=== PATIENT | female | born 1990 | race Caucasian/White ===

== ENCOUNTER 2020-01-15 04:51 | Inpatient (IN) | payer BC ==
[2020-01-15] MEDS ORDERED: RINGERS SOLUTION,LACTATED 1,000 ML IV PRN (05:01)
[2020-01-15] MEDS ORDERED: CEFAZOLIN 2 GM/D5W RTU 2 GM/50 ML RTUPB IV PRN (05:04)
[2020-01-15] MEDS ORDERED: CEFAZOLIN 1 GM/D5W RTU 2 GM/100 ML RTUPB IV ONE (05:11)
[2020-01-15] MEDS ORDERED: RINGERS SOLUTION,LACTATED 1,000 ML IV ONE (05:15)
[2020-01-15 06:08] LABS: ABSOLUTE EOSINOPHILS # (AUTO) 0.1 10^3/uL (0.0-0.6); ABSOLUTE LYMPHOCYTES (AUTO) 2.2 10^3/uL (0.5-4.7); ABSOLUTE MONOCYTES (AUTO) 0.8 10^3/uL (0.1-1.4); ABSOLUTE NEUT (AUTO) 6.8 10^3/uL (1.7-8.2); BASOPHILS % (AUTO) 0.4 % (0-2); EOSINOPHILS % (AUTO) 1.2 % (0-6); HEMOGLOBIN 10.7 g/dL (12.0-15.5); LYMPHOCYTES % (AUTO) 21.9 % (13-45); MEAN CORPUSCULAR HEMOGLOBIN 28.5 pg (27.0-33.4); MEAN CORPUSCULAR HGB CONC 34.4 g/dL (32.0-36.0); MEAN CORPUSCULAR VOLUME 83 fl (80-97); MONOCYTES % (AUTO) 8.1 % (3-13); PLATELET COUNT 214 10^3/uL (150-450); RED BLOOD COUNT 3.75 10^6/uL (3.72-5.28); RED CELL DISTRIBUTION WIDTH 18.2 % (11.5-14.0); SEGMENTED NEUTROPHILS % (AUTO) 68.4 % (42-78); TOTAL CELLS COUNTED % (AUTO) 100 %; WHITE BLOOD COUNT 9.9 10^3/uL (4.0-10.5)
[2020-01-15 06:16] LABS: APPEARANCE,URINE CLEAR; BILIRUBIN,URINE NEGATIVE (NEGATIVE); COLOR,URINE YELLOW; GLUCOSE, URINE NEGATIVE (NEGATIVE); KETONES,URINE NEGATIVE (NEGATIVE); LEUKOCYTE ESTERASE,URINE SMALL (NEGATIVE); NITRITE,URINE NEGATIVE (NEGATIVE); PROTEIN,URINE NEGATIVE (NEGATIVE); URINE SPECIFIC GRAVITY 1.013; UROBILINOGEN,URINE NEGATIVE mg/dL (<2.0)
[2020-01-15 06:21] LABS: URINE AMPHETAMINES SCREEN NEGATIVE; URINE BARBITURATES SCREEN NEGATIVE; URINE BENZODIAZEPINES SCREEN NEGATIVE; URINE COCAINE SCREEN NEGATIVE; URINE MARIJUANA (THC) SCREEN NEGATIVE; URINE METHADONE SCREEN NEGATIVE; URINE PHENCYCLIDINE SCREEN NEGATIVE
[2020-01-15] MEDS ORDERED: KETOROLAC TROMETHAMINE INJ/PF 30 MG/1 ML SDV ONE (07:17)
[2020-01-15] MEDS ORDERED: GLYCOPYRROLATE INJ 0.4 MG/2 ML VIAL ONE (07:17)
[2020-01-15] MEDS ORDERED: OXYTOCIN 10 UNIT/ML VIAL ONE (07:17)
[2020-01-15] MEDS ORDERED: ACETAMINOPHEN 1,000 MG/100 ML RTUPB IV ONE (07:18)
[2020-01-15] MEDS ORDERED: FENTANYL CITRATE INJ/PF 100 MCG/2 ML AMPUL ONE (07:18)
[2020-01-15] MEDS ORDERED: DIPHENHYDRAMINE HCL 50 MG/ML VIAL ONE ×2 (07:18→13:36)
[2020-01-15] MEDS ORDERED: MIDAZOLAM 2 MG/2 ML INJ ONE (07:18)
[2020-01-15] MEDS ORDERED: ONDANSETRON HCL INJ/PF 4 MG/2 ML SDV ONE (07:18)
[2020-01-15] MEDS ORDERED: OXYTOCIN/NORMAL SALINE 20 UNIT/1,000 ML RTUINJ ONE (07:18)
[2020-01-15] MEDS ORDERED: EPHEDRINE SULFATE INJ 50 MG/1 ML AMPULE ONE (07:18)
[2020-01-15] MEDS ORDERED: PHENYLEPHRINE HCL INJ/PF 10 MG/1 ML SDV ONE (07:18)
[2020-01-15] MEDS ORDERED: MORPHINE SULFATE 10 MG/ML INJ IV PRN (08:30)
[2020-01-15] MEDS ORDERED: DIPHENHYDRAMINE HCL 50 MG/ML VIAL IV PRN (08:30)
[2020-01-15] MEDS ORDERED: FENTANYL CITRATE INJ/PF 100 MCG/2 ML AMPUL IV PRN ×3 (08:30)
[2020-01-15] MEDS ORDERED: PROMETHAZINE HCL INJ 25 MG/1 ML VIAL IV PRN ×3 (08:30→08:56)
[2020-01-15] MEDS ORDERED: OXYCODONE-ACETAMINOPHEN 5-325 MG TABLET PO PRN ×3 (08:30→08:56)
[2020-01-15] MEDS ORDERED: SIMETHICONE 80 MG TAB.CHEW PO PRN (08:56)
[2020-01-15] MEDS ORDERED: MEASLES,MUMPS&RUBELLA VACC/PF 0.5 ML VIAL SUBCUT PRN (08:56)
[2020-01-15] MEDS ORDERED: DIPH/PERTUSS(ACELL)/TETANUS VAC/PF 0.5 ML SYR (>=10YO) IM PRN (08:56)
[2020-01-15] MEDS ORDERED: OXYTOCIN/NORMAL SALINE 20 UNIT/1,000 ML RTUINJ IV PRN (08:56)
[2020-01-15] MEDS ORDERED: ACETAMINOPHEN 325 MG TABLET PO PRN (08:56)
[2020-01-15] MEDS: KETOROLAC TROMETHAMINE INJ/PF 30 MG/1 ML SDV IV SCH ×3 (09:29→21:30)
[2020-01-15] MEDS ORDERED: MISOPROSTOL 0.2 MG TABLET ONE (10:03)
[2020-01-15] MEDS ORDERED: METHYLERGONOVINE MALEATE INJ/PF 0.2 MG/1 ML AMPULE IM ONE (10:04)
[2020-01-15] MEDS ORDERED: MISOPROSTOL 0.1 MG TABLET PR ONE (10:05)
[2020-01-15] MEDS ORDERED: METHYLERGONOVINE MALEATE INJ/PF 0.2 MG/1 ML AMPULE ONE (10:11)
[2020-01-15] MEDS ORDERED: MEPERIDINE HCL/PF INJ 25 MG/1 ML DISP.SYRIN ONE (10:45)
[2020-01-15] MEDS: MEPERIDINE HCL/PF INJ 25 MG/1 ML DISP.SYRIN IV PRN ×2 (10:46→10:58)
--- NOTE | 2020-01-15 11:22 | PDOC DELIVERY SUMMARY ---
Delivery Summary - Maternal Hx : II Hx # Pregnancies: 1 DAHIANA: 01/09/20 Ruptured Membranes: AROM Time of Rupture: 08:10 Fluids: Clear - Delivery Presentation: Vertex Heart Rate Monitoring: Done Pre-Operatively Support Person Present: Yes Location: OR : Scheduled Placenta: Within Normal Limits Delivery of Placenta Date: 01/15/20 Delivery of Placenta Time: 08:11 - Medications Type of Anesthesia:: Spinal - Delivery Medications Delivery Meds: Cytotec 1000mcg Per Rectum/Vagina - Infant Assess and Care Baby 1 Male Delivery of Date: 01/15/20 Delivery of Time: 08:11 at 1 minute: 8 at 5 minutes: 9 Preprinted Number On Band: [id number] Skin to Skin: No To Nursery At: 08:24 Mode of Transport: Bassinet Infant Delivery Weight: 4,520 Delivery Length: 21.25 in - Delivery Personnel Nursery RN: ME RN: LOLY MAGUIRE MD: LOLY WOLFF
--- NOTE | 2020-01-15 11:27 | Operative Report ---
Operative Report DATE OF SURGERY: 01/15/20 PREOPERATIVE DIAGNOSIS: Term IUP. Macrosomia. History of prior difficult deli very at 35 wks with twins POSTOPERATIVE DIAGNOSIS: Same as above OPERATION: Primary section SURGEON: LOLY WOLFF ANESTHESIA: Spinal TISSUE REMOVED OR ALTERED: Placenta COMPLICATIONS: None ESTIMATED BLOOD LOSS: 650cc QUANTITATIVE BLOOD LOSS: 625 INTRAOPERATIVE FINDINGS: Normal appearing uterus, bilateral fallopian tubes and ovaries. Vertex presentaion with nuchal x1 noted. Fluid clear. Placenta posterior and normal appearing grossly. Viable male infant at 9 lb 5 oz or 4,508 grams with Apgars of 8/9 at one and 5 minutes respectfully. PROCEDURE: IV fluids: per anesthesia record Urinary output: 400 cc Findings: Normal-appearing uterus bilateral fallopian tubes and ovaries. Placenta normal grossly. Viable male with Apgars of 8 and 9, at 1 and 5 minutes respectively. Weight 9 lb 15 oz Position: To recovery room in stable condition Description of procedure: The patient was taken to the operating room and spinal anesthesia was administered and found to be adequate. She was then placed on the OR table in the supine position with a slight leftward tilt. Patient was prepped and draped in usual sterile fashion. Ancef 2 gms was given IV prior to the procedure for infection prophylaxis. Timeout was taken. A Pfannenstiel skin incision was then made approximately 3 cm above the pubic symphysis and carried down to level the rectus fascia. The rectus fascia was then nicked in the midline with a scalpel and the fascial incision was extended laterally with use of curved Mauricio scissors. The rectus fascia was then grasped with 2 Kocker clamps elevated and the underlying rectus muscle was dissected off both bluntly and sharply. Any bleeding controlled with cautery. The rectus muscles were then split in the midline and the peritoneum was entered. The peritoneal incision was then extended by manually stretching the peritoneum. The bladder blade was positioned. The bladder was noted to be out of harm's way. A scalpel was then used in the lower uterine for the hysterotomy, slowly until amniotomy was obtained a large amount of fluid was noted. The uterine incision was then manually stretched. The was noted to be in vertex postion. The head was elevated and brought to the hysterotomy incision. Nuchal cord x1 noted and reduced. The head then delivered with minmal difficulty. The shoulders and the rest of the body followed immediately. The cord was cut clamped and the was handed off to the nurse awaiting. Infant was crying prior to hand off. The placenta was manually delivered. Using a lap gauze the uterus was cleared of all clots and debris. The uterus was then exteriorized and a bladder blade was repositioned. The uterine incision was then closed with 0 Chromic suture in a running locked fashion. A second layer of the same suture was used in a running locked imbricated fashion. The uterine incision was inspected and one area was oozing but stopped after placing a box stitch. The posterior aspect of the uterus was then inspected and anatomy was seen as above. The uterus was returned to its normal anatomic position within the abdominal cavity. Warm saline irrigation was used to clear all clots and debris from the abdomen. The uterine incision was inspected once more and noted to remain hemostatic. The bladder blade was removed and the peritoneum was closed with 2-0 chromic in a running fashion. The rectus muscles were then reapproximated and the rectus fascia was closed with a #1 PDS in a running fashion. The subcutaneous tissue was then inspected and any bleeding was controlled with Bovie electrocautery. The skin was then closed with 4-0 Monocryl in a running subcuticular fashion. The skin incision was then clean dried and Dermabond was applied over the skin incision. All instrument sponge and needle counts were correct x3 for the procedure the patient tolerated the procedure well. She will proceed to recovery room in stable condition
[2020-01-15] MEDS ORDERED: METHYLERGONOVINE MALEATE 0.2 MG TABLET PO SCH (12:00)
[2020-01-15] MEDS: PRENATAL VITAMIN W DHA CAPSULE PO SCH (12:18)
[2020-01-15] MEDS: DOCUSATE SODIUM 100 MG CAPSULE PO SCH ×2 (12:18→18:05)
[2020-01-15] MEDS: HYDROMORPHONE HCL INJ/PF 2 MG/ML AMPULE IV PRN ×3 (12:20→19:49)
[2020-01-15] MEDS ORDERED: DIPHENHYDRAMINE HCL 50 MG/ML VIAL IV ONE ×2 (13:45→14:15)
[2020-01-15] MEDS: METHYLERGONOVINE MALEATE 0.2 MG TABLET PO SCH ×2 (14:34→21:29)
[2020-01-15] MEDS: DIPHENHYDRAMINE HCL 50 MG/ML VIAL IV PRN ×2 (18:05→22:10)
[2020-01-15] MEDS: OXYCODONE-ACETAMINOPHEN 5-325 MG TABLET PO PRN (18:05)
[2020-01-16] MEDS: OXYCODONE-ACETAMINOPHEN 5-325 MG TABLET PO PRN (00:04)
[2020-01-16] MEDS ORDERED: IBUPROFEN 800 MG TABLET PO SCH ×2 (02:00→14:00)
[2020-01-16] MEDS: METHYLERGONOVINE MALEATE 0.2 MG TABLET PO SCH ×3 (02:11→17:41)
[2020-01-16] MEDS: DIPHENHYDRAMINE HCL 50 MG/ML VIAL IV PRN (02:14)
[2020-01-16 07:11] LABS: HEMATOCRIT 33.6 % (36.0-47.0); HEMOGLOBIN 11.1 g/dL (12.0-15.5); MEAN CORPUSCULAR HEMOGLOBIN 27.5 pg (27.0-33.4); MEAN CORPUSCULAR HGB CONC 33.2 g/dL (32.0-36.0); MEAN CORPUSCULAR VOLUME 83 fl (80-97); PLATELET COUNT 214 10^3/uL (150-450); RED BLOOD COUNT 4.06 10^6/uL (3.72-5.28); RED CELL DISTRIBUTION WIDTH 18.9 % (11.5-14.0); WHITE BLOOD COUNT 15.9 10^3/uL (4.0-10.5)
[2020-01-16] MEDS: IBUPROFEN 800 MG TABLET PO SCH ×2 (08:28→15:38)
--- NOTE | 2020-01-16 10:11 | PDOC PROGRESS REPORT ---
Subjective-OB Progress Note for:: 01/16/20 Subjective: reports bleeding slowing, pain controlled with current meds, denies needs. want to go home today Physical Exam (OB) Vital Signs: Temp Pulse Resp BP Pulse Ox 98.1 F 70 16 124/57 L 96 01/16/20 07:13 01/16/20 07:13 01/16/20 07:13 01/16/20 07:13 01/16/20 07:13 Intake & Output 01/15/20 01/16/20 01/17/20 06:59 06:59 06:59 Intake Total 600 Output Total 3050 Balance -3050 600 - Incision: Well Approximated Closure Type: Surgical Glue - Abdomen Description: Soft, Round Hernia Present: No Fundal Description: Firm, Midline Fundal Height: u/u - u/2 - Abdominal Distension: No distension Tenderness: Nontender - Extremities Lower extremities: Ly's sign - neg Calf: Normal, Nontender Objective-Diagnostic Laboratory: 01/16/20 06:35 01/16/20 01/16/20 06:35 06:35 WBC 15.9 H RBC 4.06 Hgb 11.1 L Hct 33.6 L MCV 83 MCH 27.5 MCHC 33.2 RDW 18.9 H Plt Count 214 Blood Type O NEGATIVE Assessment and Plan(PN) - Assessment and Plan (1) Asthma Qualifiers: Asthma severity: mild Is this a current diagnosis for this admission?: No (2) Status post primary low transverse section Is this a current diagnosis for this admission?: Yes (3) Suspected macroscopic fetus Is this a current diagnosis for this admission?: Yes (4) Acute blood loss anemia Is this a current diagnosis for this admission?: No - Time Spent with Patient Time with patient: Less than 15 minutes Medications reviewed and adjusted accordingly: Yes - Disposition Anticipated Discharge: Home Within: within 24 hours
--- NOTE | 2020-01-16 10:16 | PDOC DISCHARGE SUMMARY ---
Impression - Admit/DC Date/PCP Admission Date/Primary Care Provider: 01/15/20 04:51 HOOD HOPKINS MD Discharge Date: 01/16/20 - Discharge Diagnosis (1) Asthma Is this a current diagnosis for this admission?: No (2) Status post primary low transverse section Is this a current diagnosis for this admission?: Yes (3) Suspected macroscopic fetus Is this a current diagnosis for this admission?: Yes (4) Acute blood loss anemia Is this a current diagnosis for this admission?: No - Additional Information Resuscitation Status: Full Code Discharge Diet: Regular Discharge Activity: Balance Activity w/Rest, No Lifting Over 10 Pounds, No Lifting/Push/Pulling, Pelvic Rest, No tub bath Referrals: HOOD HOPKINS MD [Primary Care Provider] - Prescriptions: Hydrocodone/Acetaminophen [Hydrocodone-Acetamin 7.5-300] 1 each PO Q4HP PRN #30 tablet PRN Reason: Ibuprofen [Motrin 800 mg Tablet] 800 mg PO Q8HP PRN #60 tablet PRN Reason: Home Medications: No.137/Iron/Folic Acd [ Vitamin Tablet] 1 tab PO DAILY 11/10/14 Hydrocodone/Acetaminophen [Hydrocodone-Acetamin 7.5-300] 1 each PO Q4HP PRN #30 tablet 01/16/20 Ibuprofen [Motrin 800 mg Tablet] 800 mg PO Q8HP PRN #60 tablet 01/16/20 Results Laboratory Results: WBC 15.9 10^3/uL (4.0-10.5) H 01/16/20 06:35 RBC 4.06 10^6/uL (3.72-5.28) 01/16/20 06:35 Hgb 11.1 g/dL (12.0-15.5) L 01/16/20 06:35 Hct 33.6 % (36.0-47.0) L 01/16/20 06:35 MCV 83 fl (80-97) 01/16/20 06:35 MCH 27.5 pg (27.0-33.4) 01/16/20 06:35 MCHC 33.2 g/dL (32.0-36.0) 01/16/20 06:35 RDW 18.9 % (11.5-14.0) H 01/16/20 06:35 Plt Count 214 10^3/uL (150-450) 01/16/20 06:35 Lymph % (Auto) 21.9 % (13-45) 01/15/20 05:33 [place] % (Auto) 8.1 % (3-13) 01/15/20 05:33 Eos % (Auto) 1.2 % (0-6) 01/15/20 05:33 Baso % (Auto) 0.4 % (0-2) 01/15/20 05:33 Absolute Neuts (auto) 6.8 10^3/uL (1.7-8.2) 01/15/20 05:33 Absolute Lymphs (auto) 2.2 10^3/uL (0.5-4.7) 01/15/20 05:33 Absolute Monos (auto) 0.8 10^3/uL (0.1-1.4) 01/15/20 05:33 Absolute Eos (auto) 0.1 10^3/uL (0.0-0.6) 01/15/20 05:33 Absolute Basos (auto) 0.0 10^3/uL (0.0-0.2) 01/15/20 05:33 Seg Neutrophils % 68.4 % (42-78) 01/15/20 05:33 Urine Color YELLOW 01/15/20 05:25 Urine Appearance CLEAR 01/15/20 05:25 Urine pH 6.0 (5.0-9.0) 01/15/20 05:25 Ur Specific [place] 1.013 01/15/20 05:25 Urine Protein NEGATIVE mg/dL (NEGATIVE) 01/15/20 05:25 Urine Glucose (UA) NEGATIVE mg/dL (NEGATIVE) 01/15/20 05:25 Urine Ketones NEGATIVE mg/dL (NEGATIVE) 01/15/20 05:25 Urine Blood NEGATIVE (NEGATIVE) 01/15/20 05:25 Urine Nitrite NEGATIVE (NEGATIVE) 01/15/20 05:25 Urine Bilirubin NEGATIVE (NEGATIVE) 01/15/20 05:25 Urine Urobilinogen NEGATIVE mg/dL (<2.0) 01/15/20 05:25 Ur Leukocyte Esterase SMALL (NEGATIVE) H 01/15/20 05:25 Urine WBC (Auto) 15 /HPF 01/15/20 05:25 Urine RBC (Auto) 1 /HPF 01/15/20 05:25 Urine Bacteria (Auto) TRACE /HPF 01/15/20 05:25 Squamous Epi Cells Auto 3 /HPF 01/15/20 05:25 Urine Mucus (Auto) RARE /LPF 01/15/20 05:25 Urine Ascorbic Acid NEGATIVE (NEGATIVE) 01/15/20 05:25 Urine Opiates Screen NEGATIVE 01/15/20 05:25 Urine Methadone Screen NEGATIVE 01/15/20 05:25 Ur Barbiturates Screen NEGATIVE 01/15/20 05:25 Ur Phencyclidine Scrn NEGATIVE 01/15/20 05:25 Ur Amphetamines Screen NEGATIVE 01/15/20 05:25 U Benzodiazepines Scrn NEGATIVE 01/15/20 05:25 Urine Cocaine Screen NEGATIVE 01/15/20 05:25 U Marijuana (THC) Screen NEGATIVE 01/15/20 05:25 Blood Type O NEGATIVE 01/16/20 06:35 Antibody Screen NEGATIVE 01/15/20 05:33 Plan Plan of Treatment: follow up in one week at [facility] for incision check
[2020-01-16] MEDS: PRENATAL VITAMIN W DHA CAPSULE PO SCH (10:47)
[2020-01-16] MEDS: DOCUSATE SODIUM 100 MG CAPSULE PO SCH ×2 (10:48→17:43)
[2020-01-16 17:32] VITALS: BP 131/82
== END 2020-01-16 18:20 | disposition home or self-care (01) | DRG 806 ==
LOC: 2S 04:51 → EDSTATUS 09:45
PROVIDERS: ADMIT Obstetrics & Gynecology Gynecology; ATTEND Obstetrics & Gynecology Gynecology
PROC: 10907ZC Drainage of Amniotic Fluid, Therapeutic from Products of Conception, Via Natural or Artificial Opening (ICD-10-PCS; 2020-01-15)
PROC: 10E0XZZ Delivery of Products of Conception, External Approach (ICD-10-PCS; principal; 2020-01-15 07:45)
PROC: 3E0234Z Introduction of Serum, Toxoid and Vaccine into Muscle, Percutaneous Approach (ICD-10-PCS; 2020-01-16)
DX: O48.0 Post-term pregnancy (principal); D62 Acute posthemorrhagic anemia; Z37.0 Single live birth; O26.893 Other specified pregnancy related conditions, third trimester; Z67.41 Type O blood, Rh negative; O90.81 Anemia of the puerperium; O99.52 Diseases of the respiratory system complicating childbirth; O36.63X0 Maternal care for excessive fetal growth, third trimester, not applicable or unspecified; O69.81X0 Labor and delivery complicated by cord around neck, without compression, not applicable or unspecified; J45.20 Mild intermittent asthma, uncomplicated; Z3A.40 40 weeks gestation of pregnancy
CPT/HCPCS: 1961; 36415; 80307; 81001; 85025; 85027; 85461; 86850; 86900; 86901; 94799; J0131; J0690; J1170; J1200; J1885; J2175; J2210; J2250; J2370; J2405; J2590; J2790; J3010; J3490; J7120